=== PATIENT | female | born 1990 | race Asian ===

== ENCOUNTER 2023-12-02 02:06 | Inpatient (IN) | payer MEDICARE ==
[~2023-12-02] VITALS: Ht 170.2 cm; Wt 55.8 kg
[2023-12-02 14:27] VITALS: BP 118/64; PULSE 85; RESP 17; TEMP 98.6; O2SAT 100
[2023-12-02] MEDS ORDERED: HydrOXYzine PAMOATE 50 MG CAPSULE PO PRN (18:30)
[2023-12-02] MEDS ORDERED: GuaiFENesin/D-METHORPHAN [SUGAR-FREE] 200-20MG/10 ML SYRUP UDCUP PO PRN (18:30)
[2023-12-02] MEDS ORDERED: LOPERAMIDE HCL 2 MG CAPSULE PO PRN (18:30)
[2023-12-02] MEDS ORDERED: TUBERCULIN, PURIFIED PROTEIN DERIVATIVE 5 TU/0.1 ML SYRINGE ID ONE (18:30)
[2023-12-02] MEDS ORDERED: QUEtiapine FUMARATE 100 MG TABLET PO PRN (18:30)
[2023-12-02] MEDS ORDERED: MAGNESIUM HYDROXIDE SUSPENSION 30 ML UDCUP PO PRN (18:30)
[2023-12-02 20:23] VITALS: BP 110/68; PULSE 70; RESP 18; TEMP 97.4; O2SAT 99
[2023-12-02] MEDS: QUEtiapine FUMARATE 200 MG TABLET PO SCH (20:33)
[2023-12-02] MEDS: DIVALPROEX SODIUM 500 MG ER TABLET PO SCH (20:33)
[2023-12-02] MEDS: MELATONIN 5 MG TABLET PO SCH (20:33)
[2023-12-02] MEDS ORDERED: DOXEPIN HCL 10 MG CAPSULE PO ONE (21:15)
[2023-12-02] MEDS: INFLUENZA VIRUS VACCINE TVS (6MO+) 2024-25/PF 45 MCG/0.5 ML SYRINGE IM. ONE (21:56)
[2023-12-03 08:10] VITALS: RESP 18
[2023-12-03] MEDS: MULTIVITAMINS WITH MINERALS, THERAPEUTIC TABLET PO SCH (08:20)
[2023-12-03] MEDS: THIAMINE 100 MG TABLET PO SCH (08:20)
[2023-12-03] MEDS: FOLIC ACID 1 MG TABLET PO SCH (08:20)
[2023-12-03] MEDS: NALTREXONE HCL 50 MG TABLET PO SCH (08:20)
[2023-12-03] MEDS: LORazepam 2 MG TABLET PO PRN (15:34)
[2023-12-03] MEDS: DOXEPIN HCL 10 MG CAPSULE PO SCH (20:28)
[2023-12-03] MEDS: QUEtiapine FUMARATE 200 MG TABLET PO SCH (20:28)
[2023-12-03 21:00] VITALS: BP 118/77; PULSE 91; RESP 18; TEMP 97.4; O2SAT 97
[2023-12-04 08:25] VITALS: RESP 18
[2023-12-04 08:53] LABS: BASOPHILS % (AUTO) 0.4 % (0.0-2.0); EOSINOPHILS % (AUTO) 1.6 % (1.0-6.0); HEMATOCRIT 42.9 % (36-46); HEMOGLOBIN 14.1 g/dL (12.0-16.0); LYMPHOCYTES # (AUTO) 2.7 K/uL (1.0-4.8); LYMPHOCYTES % (AUTO) 32.2 % (22.0-44.0); MEAN CORPUSCULAR HEMOGLOBIN 32.4 pg (26.0-34.0); MEAN CORPUSCULAR HGB CONC 32.9 G/dL (31.0-37.0); MEAN CORPUSCULAR VOLUME 98 fL (80-100); MONOCYTES # (AUTO) 0.3 K/uL (0.1-1.0); NEUTROPHILS # (AUTO) 5.2 K/uL (1.8-7.7); NEUTROPHILS % (AUTO) 61.8 % (40.0-70.0); PLATELET COUNT (AUTO) 355 K/uL (150-450); RED BLOOD CELL COUNT(AUTO) 4.36 MIL/uL (4.00-5.20); RED CELL DISTRIBUTION WIDTH 13.1 % (11.5-14.5); WHITE BLOOD COUNT (AUTO) 8.5 K/uL (4.5-11.0)
[2023-12-04 20:43] VITALS: BP 105/64; PULSE 86; RESP 18; TEMP 97.1; O2SAT 98
[2023-12-05 08:07] VITALS: RESP 16
[2023-12-05 10:42] LABS: HCG,QUAL URINE NEGATIVE (NEGATIVE)
[2023-12-05 10:47] LABS: ALCOHOL, URINE DRUG SCREEN NEGATIVE (NEGATIVE); AMPHET/METH SCREEN,URINE NEGATIVE (NEGATIVE); BARBITURATE SCREEN, URINE NEGATIVE (NEGATIVE); BENZODIAZEPINES SCREEN,URINE NEGATIVE (NEGATIVE); CANNABINOID SCREEN,URINE NEGATIVE (NEGATIVE); COCAINE SCREEN,URINE NEGATIVE (NEGATIVE); METHADONE SCREEN, URINE NEGATIVE (NEGATIVE); OPIATE SCREEN,URINE NEGATIVE (NEGATIVE); PHENCYCLIDINE SCREEN,URINE NEGATIVE (NEGATIVE)
[2023-12-05] MEDS: HALOPERIDOL 5 MG TABLET PO PRN (16:39)
[2023-12-05] MEDS: QUEtiapine FUMARATE 200 MG TABLET PO SCH (20:10)
[2023-12-05 20:34] VITALS: BP 109/69; PULSE 82; RESP 16; TEMP 98.7; O2SAT 97
[2023-12-06 08:14] VITALS: BP 91/49; PULSE 69; RESP 18; TEMP 97.9; O2SAT 98
[2023-12-06] MEDS: MAG HYDROX/ALUMINUM HYD/SIMETH ES 30 ML SUSPENSION UDCUP PO PRN (10:47)
[2023-12-06] MEDS: PROMETHAZINE HCL 25 MG TABLET PO PRN (16:53)
[2023-12-06 20:10] VITALS: BP 110/65; PULSE 85; RESP 16; TEMP 97.6; O2SAT 98
[2023-12-07 15:30] VITALS: BP 120/77; PULSE 114; RESP 16; TEMP 97.1; O2SAT 100
[2023-12-07 15:58] VITALS: PULSE 123; O2SAT 99
[2023-12-07 18:20] VITALS: PULSE 118; O2SAT 99
[2023-12-07 20:21] VITALS: BP 115/76; PULSE 83; RESP 17; TEMP 97.2; O2SAT 97
[2023-12-08 00:15] VITALS: BP 118/78; PULSE 82; RESP 17; TEMP 97.5; O2SAT 98
[2023-12-08 14:22] VITALS: BP 114/65; PULSE 100; RESP 17; TEMP 97.6; O2SAT 100
[2023-12-08 20:16] VITALS: BP 141/73; PULSE 92; RESP 17; TEMP 98; O2SAT 98
[2023-12-08] MEDS: QUEtiapine FUMARATE 300 MG TABLET PO SCH (20:46)
[2023-12-08] MEDS: MICONAZOLE NITRATE 2% 45 GM VAGINAL CREAM VG SCH (21:00)
[2023-12-08] MEDS: FLUCONAZOLE 150 MG TABLET PO ONE (21:50)
[2023-12-09 08:35] VITALS: BP 117/60; PULSE 87; RESP 18; TEMP 97.2; O2SAT 99
[2023-12-09 20:25] VITALS: BP 92/51; PULSE 64; RESP 16; TEMP 96.3; O2SAT 99
[2023-12-09] MEDS: QUEtiapine FUMARATE 300 MG TABLET PO SCH (21:20)
[2023-12-09] MEDS: QUEtiapine FUMARATE 100 MG TABLET PO SCH (21:20)
[2023-12-10] MEDS: ZOLPIDEM TARTRATE 10 MG TABLET PO PRN (00:07)
[2023-12-10 11:24] VITALS: BP 127/77; PULSE 103; RESP 18; TEMP 97.8; O2SAT 98
[2023-12-10] MEDS ORDERED: DOXE10CA42 PO ×2 (16:28→16:33)
[2023-12-10] MEDS ORDERED: NALT50TA33 PO ×2 (16:28→16:33)
[2023-12-10] MEDS ORDERED: DIVA-153 PO ×2 (16:28→16:33)
[2023-12-10] MEDS ORDERED: QUET200T30 PO (16:28)
[2023-12-10] MEDS ORDERED: MELA5TAB40 PO ×2 (16:28→16:33)
[2023-12-10] MEDS: QUEtiapine FUMARATE 200 MG TABLET PO SCH (20:35)
[2023-12-10 22:13] VITALS: BP 114/73; PULSE 95; RESP 18; TEMP 97.5; O2SAT 100
[2023-12-11 08:04] VITALS: RESP 17
[2023-12-11 21:16] VITALS: RESP 18
[2023-12-12 08:08] VITALS: RESP 18
[2023-12-12 20:36] VITALS: BP 105/85; PULSE 93; RESP 17; TEMP 97.4; O2SAT 99
[2023-12-13 09:16] VITALS: BP 104/69; PULSE 73; RESP 18; TEMP 97.7; O2SAT 99
[2023-12-13 20:36] VITALS: BP 119/73; PULSE 84; RESP 20; TEMP 98.4; O2SAT 97
[2023-12-14 08:21] VITALS: RESP 18
[2023-12-15 08:03] VITALS: RESP 18
[2023-12-15 20:01] VITALS: BP 122/76; PULSE 101; RESP 18; TEMP 97.3; O2SAT 98
[2023-12-16 08:04] VITALS: RESP 18
[2023-12-16] MEDS ORDERED: ALPRAZolam 1 MG TABLET PO PRN (20:15)
[2023-12-16] MEDS: ALPRAZolam 0.25 MG TABLET PO ONE (20:33)
[2023-12-16] MEDS: QUEtiapine FUMARATE 300 MG TABLET PO SCH (20:50)
[2023-12-16 22:02] VITALS: BP 120/77; PULSE 94; RESP 18; TEMP 97.5; O2SAT 100
[2023-12-17 08:23] VITALS: RESP 18
[2023-12-17] MEDS ORDERED: QUET200T30 PO (16:07)
[2023-12-17] MEDS: ALPRAZolam 1 MG TABLET PO SCH (20:47)
[2023-12-17] MEDS: QUEtiapine FUMARATE 200 MG TABLET PO SCH (20:48)
[2023-12-18] MEDS: ACETAMINOPHEN 325 MG TABLET PO PRN (00:45)
[2023-12-18 08:40] VITALS: RESP 18
== END 2023-12-18 12:10 | disposition home or self-care (01) | DRG 885 ==
LOC: B2X 08:57
PROVIDERS: ADMIT Psychiatry & Neurology Psychiatry; ATTEND Psychiatry & Neurology Psychiatry
PROC: GZHZZZZ Group Psychotherapy (ICD-10-PCS; principal; 2023-12-02)
PROC: GZ56ZZZ Individual Psychotherapy, Supportive (ICD-10-PCS; 2023-12-02)
DX: F31.5 Bipolar disorder, current episode depressed, severe, with psychotic features (principal); Z59.00 Homelessness unspecified; R45.851 Suicidal ideations; F19.10 Other psychoactive substance abuse, uncomplicated; F10.11 Alcohol abuse, in remission; F41.9 Anxiety disorder, unspecified; Z55.9 Problems related to education and literacy, unspecified; Z63.9 Problem related to primary support group, unspecified; Z65.3 Problems related to other legal circumstances
CPT/HCPCS: 80164; 80307; 84703; 85025

== ENCOUNTER 2023-12-02 03:46 | Emergency (ER) | payer MEDICARE ==
[~2023-12-02] VITALS: Ht 170.2 cm; Wt 56.8 kg
[2023-12-02 04:16] VITALS: TEMP 97.8
[2023-12-02 04:19] LABS: EOSINOPHILS % (AUTO) 4.1 % (1.0-6.0); HEMATOCRIT 43.8 % (36-46); HEMOGLOBIN 14.6 g/dL (12.0-16.0); LYMPHOCYTES # (AUTO) 3.1 K/uL (1.0-4.8); LYMPHOCYTES % (AUTO) 44.5 % (22.0-44.0); MEAN CORPUSCULAR HEMOGLOBIN 32.8 pg (26.0-34.0); MEAN CORPUSCULAR HGB CONC 33.4 G/dL (31.0-37.0); MEAN CORPUSCULAR VOLUME 98 fL (80-100); MONOCYTES # (AUTO) 0.4 K/uL (0.1-1.0); MONOCYTES % (AUTO) 6.3 % (2.0-9.0); NEUTROPHILS % (AUTO) 44.1 % (40.0-70.0); PLATELET COUNT (AUTO) 357 K/uL (150-450); RED BLOOD CELL COUNT(AUTO) 4.46 MIL/uL (4.00-5.20); WHITE BLOOD COUNT (AUTO) 6.9 K/uL (4.5-11.0)
[2023-12-02 04:25] LABS: COVID AG,FIA SOURCE NASAL SWAB
[2023-12-02 04:31] LABS: ANION GAP 6 mmol/L (8-16); CALCIUM, TOTAL 8.9 mg/dL (8.8-10.5); CARBON DIOXIDE 30 mmol/L (22-29); CHLORIDE 104 mmol/L (98-107); CREATININE 0.62 mg/dL (0.60-1.30); GLOMERULAR FILTR. RATE CALC > 60 mL/min (>60); GLUCOSE,RANDOM 94 mg/dL (70-110); POTASSIUM 3.9 mmol/L (3.5-5.1); SODIUM SERUM 140 mmol/L (136-145); UREA NITROGEN, BLOOD 15 mg/dL (7-18)
[2023-12-02 04:45] LABS: SARS-COV2 (COVID) ANTIGEN,FIA Negative (Negative)
[2023-12-02 05:00] LABS: ALCOHOL, BLOOD (SERUM) < 3 mg/dL (0-10)
[2023-12-02 10:00] VITALS: BP 106/71; PULSE 65; RESP 18; O2SAT 100
== END 2023-12-02 10:11 | disposition admitted as inpatient to this hospital (09) ==
LOC: EMS 03:46 → B2X 08:57 → UNDOADMIN 08:57
DX: F20.9 Schizophrenia, unspecified (principal); F17.210 Nicotine dependence, cigarettes, uncomplicated; F12.90 Cannabis use, unspecified, uncomplicated; F15.10 Other stimulant abuse, uncomplicated; Z20.822 Contact with and (suspected) exposure to COVID-19
CPT/HCPCS: 99285; 87426; 80048; 84703; 85025; 36415; G0480

== ENCOUNTER 2023-12-19 01:06 | Emergency (ER) | payer MEDICARE ==
[~2023-12-19] VITALS: Ht 170.2 cm; Wt 59.1 kg
[~2023-12-19 01:06] MED LIST: DIVA-153 PO; DOXE10CA42 PO; MELA5TAB40 PO; NALT50TA33 PO; QUET200T30 PO
[2023-12-19 01:11] VITALS: TEMP 97.8
[2023-12-19 01:36] LABS: BASOPHILS % (AUTO) 0.2 % (0.0-2.0); EOSINOPHILS % (AUTO) 3.3 % (1.0-6.0); HEMATOCRIT 39.5 % (36-46); HEMOGLOBIN 13.3 g/dL (12.0-16.0); LYMPHOCYTES % (AUTO) 21.9 % (22.0-44.0); MEAN CORPUSCULAR HEMOGLOBIN 33.1 pg (26.0-34.0); MEAN CORPUSCULAR HGB CONC 33.6 G/dL (31.0-37.0); MEAN CORPUSCULAR VOLUME 99 fL (80-100); MONOCYTES # (AUTO) 0.4 K/uL (0.1-1.0); MONOCYTES % (AUTO) 4.7 % (2.0-9.0); NEUTROPHILS # (AUTO) 6.3 K/uL (1.8-7.7); NEUTROPHILS % (AUTO) 69.9 % (40.0-70.0); PLATELET COUNT (AUTO) 251 K/uL (150-450); RED CELL DISTRIBUTION WIDTH 13.3 % (11.5-14.5)
[2023-12-19 01:45] LABS: ANION GAP 12 mmol/L (8-16); CALCIUM, TOTAL 8.2 mg/dL (8.8-10.5); CARBON DIOXIDE 25 mmol/L (22-29); CHLORIDE 101 mmol/L (98-107); CREATININE 0.69 mg/dL (0.60-1.30); GLOMERULAR FILTR. RATE CALC > 60 mL/min (>60); GLUCOSE,RANDOM 133 mg/dL (70-110); POTASSIUM 3.2 mmol/L (3.5-5.1); SODIUM SERUM 138 mmol/L (136-145); UREA NITROGEN, BLOOD 10 mg/dL (7-18)
[2023-12-19 01:52] LABS: ALANINE AMINOTRANSFERASE 28 U/L (12-78); ALBUMIN 3.1 g/dL (3.4-5.0); ALKALINE PHOSPHATASE 60 U/L (46-116); ASPARTATE AMINOTRANSFERASE 22 U/L (15-37); BILIRUBIN,TOTAL 0.2 mg/dL (0.1-1.0); TOTAL PROTEIN, SERUM 6.2 g/dL (6.4-8.2); VALPROIC ACID 100 mcg/mL (50-100)
[2023-12-19 01:55] LABS: ACETAMINOPHEN < 2 mcg/mL (10-30); ALCOHOL, BLOOD (SERUM) < 3 mg/dL (0-10)
[2023-12-19 02:00] LABS: COVID AG,FIA SOURCE NASAL SWAB
[2023-12-19 02:11] LABS: SARS-COV2 (COVID) ANTIGEN,FIA Negative (Negative)
[2023-12-19 02:14] LABS: SALICYLATE 0.9 mg/dL (2.8-20.0)
[2023-12-19] MEDS: LORazepam 1 MG TABLET PO ONE (02:15)
[2023-12-19 05:03] LABS: PH,URINE DRUG SCREEN 7.5 (5.0-8.0)
[2023-12-19 05:11] LABS: ALCOHOL, URINE DRUG SCREEN NEGATIVE (NEGATIVE); AMPHET/METH SCREEN,URINE NEGATIVE (NEGATIVE); BARBITURATE SCREEN, URINE NEGATIVE (NEGATIVE); BENZODIAZEPINES SCREEN,URINE POSITIVE (NEGATIVE); CANNABINOID SCREEN,URINE NEGATIVE (NEGATIVE); COCAINE SCREEN,URINE NEGATIVE (NEGATIVE); METHADONE SCREEN, URINE NEGATIVE (NEGATIVE); OPIATE SCREEN,URINE NEGATIVE (NEGATIVE); PHENCYCLIDINE SCREEN,URINE NEGATIVE (NEGATIVE)
[2023-12-19 08:22] VITALS: BP 109/61; PULSE 99; RESP 18; O2SAT 98
== END 2023-12-19 08:36 | disposition home or self-care (01) ==
LOC: EMS 01:06
DX: T43.591A Poisoning by other antipsychotics and neuroleptics, accidental (unintentional), initial encounter (principal); F41.9 Anxiety disorder, unspecified; F31.9 Bipolar disorder, unspecified; F20.9 Schizophrenia, unspecified; F12.90 Cannabis use, unspecified, uncomplicated; F15.90 Other stimulant use, unspecified, uncomplicated; F17.210 Nicotine dependence, cigarettes, uncomplicated; Y92.89 Other specified places as the place of occurrence of the external cause; Z20.822 Contact with and (suspected) exposure to COVID-19
CPT/HCPCS: 99291; 87426; 80053; 84703; 85025; 93005; 80307; 80164; 82140; 36415; G0480; G0481